=== PATIENT | female | born 1945 | race Two or more races ===

== ENCOUNTER 2020-02-08 23:13 | Inpatient (IN) | payer MEDICARE, OTHER ==
[~2020-02-08] VITALS: Ht 162.6 cm; Wt 90.7 kg
[2020-02-09 01:50] VITALS: BP 161/85
[2020-02-09] MEDS ORDERED: BLOOD SUGAR DIAGNOSTIC 1 EACH STRIP IN ONE (02:30)
[2020-02-09] MEDS ORDERED: TEMAZEPAM 7.5 MG CAPSULE PO PRN (02:30)
[2020-02-09] MEDS ORDERED: MAG HYDROX/AL HYDROX/SIMETH 30 ML UDC PO PRN (02:30)
[2020-02-09] MEDS ORDERED: MAGNESIUM HYDROXIDE 30 ML UDC PO PRN (02:30)
[2020-02-09] MEDS ORDERED: LORAZEPAM 0.5 MG TABLET PO PRN (02:30)
--- NOTE | 2020-02-09 02:30 | NUR ---
GPS RN-NOTE: ADMISSION ADMITTED A 74-YR OLD FEMALE, FROM [facility] VOLUNTARY ADMISSION DUE TO PARANOID DELUSIONS & AUDITORY HALLUCINATIONS. PER PATIENT," MY DAUGHTER TOOK ME TO THE HOSPITAL BECAUSE I WAS HEARING VOICES TELLING ME THAT MY EX WANTS TO KILL ME, IT IS A LONG STORY & PATIENT DIDN'T WANT TO GIVE MUCH INFORMATION AT THIS TIME." PER [facility] RECORDS, PATIENT THINKS THAT PEOPLE ARE STALKING HER & TRYING TO KILL HER. PT HAS PARANOID DELUSIONS & WAS SEEN IN ED FEW DAYS BACK ON 02/04/20 FOR SAME SYMPTOMS. PT CALLED POLICE X 3 IN THE PAST WEEK FOR THIS & REPORTEDLY HAS BEEN HAVING AUDITORY HALLUCINATIONS. NO HALLUCINATIONS AT THIS TIME. UPON ADMISSION TO [facility], PT. IS A & O X3, DENIES HALLUCINATIONS & DELUSIONS, DENIES SI/HI AT THIS TIME. AMBULATORY WITH WALKER ON SLOW PACE. CONTINENT. HAS BILATERAL LOWER EXTREMITIES LYMPH EDEMA. PT IS GRAVELY DISABLED. COOPERATIVE, FLAT AFFECT, PRESSURED SPEECH, ANXIOUS AT TIMES BUT CALM & RELAXED AT THIS TIME, NO BEHAVIOR EPISODE NOTED UPON ADMISSION. PT WAS ADVISED OF HER VOLUNTARY ADMISSION & PT. VERBALIZED UNDERSTANDING. PT'S RIGHTS HANDBOOK AND A GUIDE TO PRESCRIPTION MEDICATIONS GIVEN. IN NO APPARENT DISTRESS. BELONGINGS WERE INVENTORIED AND CHECKED FOR CONTRABAND. PT. IS UNDER CARE OF PSYCHIATRIC DR. MILLER AND THE MEDICAL CARE OF DR. DIAZ. SKIN BODY ASSESSMENT DONE. BED LOCKED AND PLACED IN LOWEST POSITION TO MAINTAIN SAFETY. FALL PRECAUTIONS IMPLEMENTED. WILL CONTINUE TO MONITOR Q15 MINS. FOR SAFETY AND BEHAVIOR. WILL ENDORSE TO THE DAY SHIFT NURSE FOR CONTINUITY OF CARE.
--- NOTE | 2020-02-09 03:00 | NUR ---
GPS RN NOTE PATIENT'S DTR STEPHON CALLED GPS UNIT & MADE AWARE ABOUT PT'S VOLUNTARY ADMISSION AT [facility] BY CHARGE NURSE.
[2020-02-09] MEDS ORDERED: RIVA10TA PO (03:19)
[2020-02-09] MEDS ORDERED: DIVA500T2 PO (03:19)
[2020-02-09] MEDS ORDERED: CLON0.1T PO (03:19)
[2020-02-09] MEDS ORDERED: GABA-532 PO (03:19)
[2020-02-09] MEDS ORDERED: VIT D PO (03:19)
[2020-02-09] MEDS ORDERED: ARIP10TA9 PO (03:19)
[2020-02-09] MEDS ORDERED: METO25TA4 PO (03:19)
[2020-02-09] MEDS ORDERED: MVI PO (03:19)
[2020-02-09 03:30] VITALS: BP 150/76
--- NOTE | 2020-02-09 05:00 | NUR ---
GPS RN NOTE REQUESTED DR. DIAZ TO RECONCILE THE MEDS & MD ASSURED THAT MED RECON WILL BE DONE.
[2020-02-09] MEDS ORDERED: CLONIDINE HCL 0.1 MG TABLET PO PRN (05:30)
[2020-02-09 05:45] VITALS: BP 141/73
--- NOTE | 2020-02-09 06:15 | NUR ---
GPS RN NOTE RECONCILED THE HOME MEDICATIONS OF NEW ADMITTED PATIENT.
--- NOTE | 2020-02-09 06:31 | NUR ---
GPS RN NOTE: DR. MILLER NOTIFIED DR. MILLER WAS CALLED BY CHARGE NURSE & MADE AWARE ABOUT NEW ADMISSION. INFORMED MD THAT STANDING ORDERS WERE ENTERED & NO NEW ORDER FROM DR. MILLER AT THIS TIME. WILL ENDORSE TO AM RN FOR CONTINUITY OF CARE.
[2020-02-09] MEDS: ACETAMINOPHEN 325 MG TABLET PO PRN (06:39)
--- NOTE | 2020-02-09 06:41 | NUR ---
GPS RN NOTE: LOWER BACK PAIN PATIENT C/O LOWER BACK PAIN 07/06 & WANTED TO TAKE PAIN MEDICINE. PRN TYLENOL 650 MG PO GIVEN. WILL CONTINUE TO MONITOR FOR ANY CHANGES.
[2020-02-09 07:26] LABS: BASOPHILS % (AUTO) 0.6 % (0.0-2.0); EOSINOPHILS % (AUTO) 1.7 % (0.0-6.0); HEMATOCRIT 45 % (33-45); HEMOGLOBIN 14.6 g/dL (11.5-14.8); LYMPHOCYTES # (AUTO) 1.7 /CMM (0.8-4.8); LYMPHOCYTES % (AUTO) 39.1 % (20.0-44.0); MEAN CORPUSCULAR HGB CONC 33 g/dl (31.0-36.0); MEAN CORPUSCULAR VOLUME 96 fL (82-100); MONOCYTES # (AUTO) 0.6 /CMM (0.1-1.30); MONOCYTES % (AUTO) 12.8 % (2.0-12.0); NEUTROPHILS % (AUTO) 45.8 % (43.0-81.0); PLATELET COUNT (AUTO) 157 /CMM (150-450); RED BLOOD CELL COUNT(AUTO) 4.61 MIL/uL (4.0-5.2); WHITE BLOOD COUNT (AUTO) 4.4 K/uL (4.3-11.0)
[2020-02-09 07:43] LABS: CALCIUM, SERUM 9.5 mg/dL (8.5-10.1); POTASSIUM 4.4 mmol/L (3.5-5.1)
[2020-02-09 08:00] VITALS: BP 130/74
[2020-02-09] MEDS: GABAPENTIN 100 MG CAPSULE PO SCH ×2 (09:15→17:11)
[2020-02-09] MEDS: METOPROLOL SUCCINATE 25 MG TAB.SR.24H PO SCH ×2 (09:16→16:55)
[2020-02-09] MEDS: RIVAROXABAN 10 MG TABLET PO SCH (09:17)
--- NOTE | 2020-02-09 10:01 | NUR ---
Family Contact: SW called the pts daughter, Jesusita ([phone]), and was unable to make contact or leave a message.
--- NOTE | 2020-02-09 10:46 | NUR ---
WOUND CARE CONSULT: PT REFUSED SKIN ASSESSMENT. REVIEWED PHOTO DOCUMENTATION WHICH INDICATES RASHES TO SKIN FOLDS AND DISCOLORATION TO LOWER LEGS, PRESENT ON ADMISSION. RECOMMENDATIONS MADE FOR SKIN PROTECTION. DISCUSSED WITH NURSING STAFF. PT IS AMBULATORY. IN AGREEMENT WITH PLAN OF CARE. Addendum: 02/09/20 at 1105 by DAMON SMITH WNDNU ADDITIONAL: PER ADMISSION PHOTOS THERE IS REDNESS WITH SOME CRUSTING TO LOWER LEGS, PRESENT ON ADMISSION. RECOMMEND DPM CONSULT. DR DAVIS NOTIFIED OF CONSULT REQUEST.
[2020-02-09] MEDS: Z GUARD REMEDY 4 OZ OINT TP SCH (11:53)
--- NOTE | 2020-02-09 12:27 | NUR ---
Initial Discharge Plan: Pt currently resides in her apartment located at [address] [place] [address] [address], [address], [place] [address]; ([phone]). Per pt, she would like to return to her apartment. Per daughter, Jesusita ([phone]), she will stay with the pt to ensure safety. SW will work with the pt and the MD regarding appropriate discharge planning. SW will form a safe and proper discharge plan.
--- NOTE | 2020-02-09 12:28 | NUR ---
Family Contact: SW called the pts daughter, Jesusita ([phone]), and discussed the pts treatment and discharge plan. She stated that the pt has been increasingly paranoid regarding her ex . Pt wants to go back to her apartment so the daughter stated that she will stay with her when she is discharged. ABBIE explained voluntary discharge protocols and explained the possibility of the pt being placed on a hold if she meets criteria. ABBIE also provided additional information on alternative placement options.
--- NOTE | 2020-02-09 12:57 | NUR ---
RELOCATED TO RM.217.
--- NOTE | 2020-02-09 14:00 | NUR ---
quieter after extra meds given.
[2020-02-09 16:00] VITALS: BP 104/65
--- NOTE | 2020-02-09 17:00 | NUR ---
SEVERAL TIMES TODAY REQUESTED TO BE D'CD.SO CRISIS PERSON IN AND EVALUATED PT. AND PT. PUT ON HOLD.DTR. MADE AWARE OF HOLD STATUS.
[2020-02-09] MEDS: CLOTRIMAZOLE 1% 15 GM TUBE TP SCH (17:11)
[2020-02-09 20:12] VITALS: BP 133/64
[2020-02-09] MEDS: DIVALPROEX SODIUM 500 MG TABLET.DR PO SCH (21:28)
[2020-02-09] MEDS: ARIPIPRAZOLE 5 MG TABLET PO SCH (21:28)
[2020-02-10 08:00] VITALS: BP 138/72
[2020-02-10] MEDS: GABAPENTIN 100 MG CAPSULE PO SCH ×2 (08:47→17:15)
[2020-02-10] MEDS: METOPROLOL SUCCINATE 25 MG TAB.SR.24H PO SCH ×2 (08:47→17:15)
[2020-02-10] MEDS: RIVAROXABAN 10 MG TABLET PO SCH (08:48)
[2020-02-10] MEDS: CLOTRIMAZOLE 1% 15 GM TUBE TP SCH ×2 (08:53→17:22)
[2020-02-10] MEDS: Z GUARD REMEDY 4 OZ OINT TP SCH (08:53)
[2020-02-10] MEDS: VITAMINS A AND D 56.7 GM TUBE TP SCH (08:54)
[2020-02-10] MEDS: ACETAMINOPHEN 325 MG TABLET PO PRN (14:17)
--- NOTE | 2020-02-10 14:18 | NUR ---
GROUP THERAPY: SW encouraged pt to attend group on this day, pt refused stating she wanted to leave instead of joining a group. Pt appears anxious and focused on being discharged.
--- NOTE | 2020-02-10 14:20 | NUR ---
GPS/RN-NOTES PATIENT C/O HEADACHE AND REQUESTING TYLENOL,TYLENOL 650MG P.O GIVEN PRN ORDER. WILL CONT. MONITORING.
[2020-02-10 16:00] VITALS: BP 135/69
[2020-02-10 20:11] VITALS: BP 136/75
[2020-02-10] MEDS: DIVALPROEX SODIUM 500 MG TABLET.DR PO SCH (21:25)
[2020-02-10] MEDS: ARIPIPRAZOLE 5 MG TABLET PO SCH (21:37)
--- NOTE | 2020-02-10 21:42 | NUR ---
GPS RN NOTE: PT ACCIDENTALLY DROPPED FIRST SET OF 2200 ABILIFY 5MG 4TABS/20MG WHILE TRYING TO PUT IT IN HER MOUTH SO IT WAS WASTED AND A SECOND SET PULLED FROM [employer] AND ADMINISTERED.
--- NOTE | 2020-02-11 06:56 | NUR ---
GPS RN CLOSING NOTES: PT AWAKE, A/O X3. NO BEHAVIORAL ISSUES THIS SHIFT. MED COMPLIANT. SLEPT 6HR. NO S/S OF DISTRESS. RESPIRATION EVEN AND UNLABORED WITH EQUAL RISE AND FALL OF THE CHEST ON ROOM AIR. ALL PT CARE NEEDS MET ANTICIPATED. CURRENTLY LAYING ON BED. WILL CONTINUE TO MONITOR AND ENDORSE TO AM SHIFT.
[2020-02-11 08:00] VITALS: BP 137/70
[2020-02-11] MEDS: METOPROLOL SUCCINATE 25 MG TAB.SR.24H PO SCH ×2 (09:12→16:16)
[2020-02-11] MEDS: GABAPENTIN 100 MG CAPSULE PO SCH ×2 (09:12→16:15)
[2020-02-11] MEDS: RIVAROXABAN 10 MG TABLET PO SCH (09:14)
[2020-02-11] MEDS: VITAMINS A AND D 56.7 GM TUBE TP SCH (09:18)
[2020-02-11] MEDS: CLOTRIMAZOLE 1% 15 GM TUBE TP SCH ×2 (09:18→16:16)
[2020-02-11] MEDS: Z GUARD REMEDY 4 OZ OINT TP SCH (09:18)
[2020-02-11 16:09] VITALS: BP 155/80
[2020-02-11 19:52] VITALS: BP 154/76
[2020-02-11] MEDS: ARIPIPRAZOLE 5 MG TABLET PO SCH (21:54)
[2020-02-11] MEDS: DIVALPROEX SODIUM 500 MG TABLET.DR PO SCH (21:54)
[2020-02-12 08:00] VITALS: BP 135/81
[2020-02-12] MEDS: METOPROLOL SUCCINATE 25 MG TAB.SR.24H PO SCH ×2 (08:30→16:27)
[2020-02-12] MEDS: GABAPENTIN 100 MG CAPSULE PO SCH ×2 (08:30→16:27)
[2020-02-12] MEDS: RIVAROXABAN 10 MG TABLET PO SCH (08:36)
[2020-02-12] MEDS: VITAMINS A AND D 56.7 GM TUBE TP SCH (08:52)
[2020-02-12] MEDS: CLOTRIMAZOLE 1% 15 GM TUBE TP SCH ×2 (08:53→16:56)
[2020-02-12] MEDS: Z GUARD REMEDY 4 OZ OINT TP SCH (08:53)
--- NOTE | 2020-02-12 11:53 | NUR ---
GROUP THERAPY: SW encouraged pt to attend group therapy on this present day. Pt refused stating that she was "busy." Pt appeared to be toileting on her diaper.
[2020-02-12 16:01] VITALS: BP 143/82
[2020-02-12 19:40] VITALS: BP 136/72
[2020-02-12 20:10] VITALS: BP 136/72
[2020-02-12] MEDS: DIVALPROEX SODIUM 500 MG TABLET.DR PO SCH (21:01)
[2020-02-12] MEDS: ARIPIPRAZOLE 5 MG TABLET PO SCH (21:01)
--- NOTE | 2020-02-13 03:28 | NUR ---
GPS RN NOTES ENDORSED PATIENT TO [facility] FOR CONTINUITY OF CARE.
--- NOTE | 2020-02-13 03:30 | NUR ---
GPS RN NOTES RECEIVED REPORT FROM HAYLEY MORALES FOR [facility].
[2020-02-13 08:00] VITALS: BP 138/70
[2020-02-13] MEDS: GABAPENTIN 100 MG CAPSULE PO SCH ×2 (08:28→16:38)
[2020-02-13] MEDS: METOPROLOL SUCCINATE 25 MG TAB.SR.24H PO SCH ×2 (08:28→16:39)
[2020-02-13] MEDS: RIVAROXABAN 10 MG TABLET PO SCH (08:29)
[2020-02-13] MEDS: Z GUARD REMEDY 4 OZ OINT TP SCH (08:35)
[2020-02-13] MEDS: VITAMINS A AND D 56.7 GM TUBE TP SCH (08:35)
[2020-02-13] MEDS: CLOTRIMAZOLE 1% 15 GM TUBE TP SCH ×2 (08:35→17:17)
[2020-02-13 16:00] VITALS: BP 137/72
[2020-02-13 19:57] VITALS: BP 122/75
[2020-02-13 20:15] VITALS: BP 122/75
[2020-02-13] MEDS: DIVALPROEX SODIUM 500 MG TABLET.DR PO SCH (21:04)
[2020-02-13] MEDS: ARIPIPRAZOLE 5 MG TABLET PO SCH (21:04)
[2020-02-14 08:00] VITALS: BP 140/91
[2020-02-14] MEDS: GABAPENTIN 100 MG CAPSULE PO SCH ×2 (08:12→16:49)
[2020-02-14] MEDS: METOPROLOL SUCCINATE 25 MG TAB.SR.24H PO SCH ×2 (08:13→16:49)
[2020-02-14] MEDS: RIVAROXABAN 10 MG TABLET PO SCH (08:18)
[2020-02-14] MEDS: Z GUARD REMEDY 4 OZ OINT TP SCH (08:19)
[2020-02-14] MEDS: VITAMINS A AND D 56.7 GM TUBE TP SCH (08:19)
[2020-02-14] MEDS: CLOTRIMAZOLE 1% 15 GM TUBE TP SCH ×2 (08:20→17:28)
[2020-02-14 16:00] VITALS: BP 147/83
[2020-02-14 20:00] VITALS: BP 134/78
[2020-02-14] MEDS: ARIPIPRAZOLE 5 MG TABLET PO SCH (21:13)
[2020-02-14] MEDS: DIVALPROEX SODIUM 500 MG TABLET.DR PO SCH (21:13)
--- NOTE | 2020-02-15 07:10 | NUR ---
GPS RN NOTES: PT. RESTING IN HER ROOM, CALM NOTED AT THIS TIME . NO S/S OF DISTRESS NOTED ,NO CHANGE OF CONDITION NOTED , ALL CARE NEEDS MET ANTICIPATED. MED COMPLIANT ,NO BEHAVIOR PROBLEMS NOTED ,WILL CONTINUE TO MONITOR FOR SAFETY BEHAVIOR, AND ENDORSE TO AM SHIFT FOR CONTINUITY OF CARE.
[2020-02-15 08:00] VITALS: BP 156/89
[2020-02-15] MEDS: GABAPENTIN 100 MG CAPSULE PO SCH ×2 (08:36→17:02)
[2020-02-15] MEDS: METOPROLOL SUCCINATE 25 MG TAB.SR.24H PO SCH ×2 (08:37→17:03)
[2020-02-15] MEDS: RIVAROXABAN 10 MG TABLET PO SCH (08:47)
[2020-02-15] MEDS: CLOTRIMAZOLE 1% 15 GM TUBE TP SCH ×2 (09:27→17:04)
[2020-02-15] MEDS: VITAMINS A AND D 56.7 GM TUBE TP SCH (09:34)
[2020-02-15] MEDS: Z GUARD REMEDY 4 OZ OINT TP SCH (09:34)
--- NOTE | 2020-02-15 10:34 | NUR ---
Family Contact: SW called the pts daughter, Jesusita ([phone]), and informed her that the pt will be discharged on either Saturday or . SW explained the pts current hold status and then informed her that the SW will inform her when the pt has her probable cause hearing. Pts daughter stated that the pt may need to be placed in a SNF and so the SW stated that she will speak to the pt and then refer to an appropriate SNF. SW stated that she will keep her involved.
--- NOTE | 2020-02-15 14:47 | NUR ---
Individual Intervention with the pt: SW met with the pt at bedside and informed her that the MD would like to discharge her on Saturday. Pt stated that she wanted to be discharged to a SNF and the SW stated that she will refer her to one and try to get an accepting facility. SW stated that she will keep her updated.
--- NOTE | 2020-02-15 14:48 | NUR ---
SNF Referral: ABBIE faxed a referral to [facility] with attn to Corey to the fax number: [phone].
[2020-02-15 16:00] VITALS: BP 136/62
--- NOTE | 2020-02-15 16:02 | NUR ---
Family Contact: Pts daughter, Jesusita ([phone]), called the SW and the SW stated that the pt was referred to a retirement facility called [facility] and provided her with the information regarding the facility and the payment. SW provided her with alternate facility names that are also recommended for this pt. SW stated that once she hears back from the facility she will call the pts daughter and inform her about the placement.
--- NOTE | 2020-02-15 16:25 | NUR ---
SNF Contact: Sailaja ([phone]), medical records coordinator from [facility], contacted the SW and stated that the pt was accepted to their facility. SW stated that the pt will be discharged on Saturday.
[2020-02-15 19:57] VITALS: BP 118/65
[2020-02-15] MEDS: DIVALPROEX SODIUM 500 MG TABLET.DR PO SCH (21:51)
[2020-02-15] MEDS: ARIPIPRAZOLE 5 MG TABLET PO SCH (21:52)
[2020-02-16 08:00] VITALS: BP 160/70
[2020-02-16] MEDS: GABAPENTIN 100 MG CAPSULE PO SCH ×2 (09:09→17:12)
[2020-02-16] MEDS: METOPROLOL SUCCINATE 25 MG TAB.SR.24H PO SCH ×2 (09:10→17:14)
[2020-02-16] MEDS: RIVAROXABAN 10 MG TABLET PO SCH (09:11)
[2020-02-16] MEDS: Z GUARD REMEDY 4 OZ OINT TP SCH (09:14)
[2020-02-16] MEDS: CLOTRIMAZOLE 1% 15 GM TUBE TP SCH ×2 (09:14→17:14)
[2020-02-16] MEDS: VITAMINS A AND D 56.7 GM TUBE TP SCH (09:15)
--- NOTE | 2020-02-16 11:38 | NUR ---
Family Contact: ABBIE called the pts daughter, Jesusita ([phone]), and informed her that the pt is going to be discharged to the facility the following day. SW stated that the pt will be placed in Rm 43A. Pts daughter stated that she approves this placement.
--- NOTE | 2020-02-16 13:30 | NUR ---
Individual Intervention with the pt: SW met with the pt in her room and expressed to her that the SNF placement is temporary and then she can go back to her apartment. Pt appeared to be ecstatic about that and thanked the SW.
--- NOTE | 2020-02-16 13:43 | NUR ---
Family Contact: SW called the pts daughter, Jesusita ([phone]), and informed her that the SNF placement is not permanent and wanted to make sure that she understood that. She stated that she does understand that.
[2020-02-16 16:00] VITALS: BP 120/66
[2020-02-16 19:50] VITALS: BP 136/74
[2020-02-16] MEDS: DIVALPROEX SODIUM 500 MG TABLET.DR PO SCH (21:08)
[2020-02-16] MEDS: ARIPIPRAZOLE 5 MG TABLET PO SCH (21:08)
[2020-02-17 08:00] VITALS: BP 146/83
[2020-02-17 08:13] VITALS: BP 146/83
[2020-02-17] MEDS: METOPROLOL SUCCINATE 25 MG TAB.SR.24H PO SCH (08:13)
[2020-02-17] MEDS: GABAPENTIN 100 MG CAPSULE PO SCH (08:13)
[2020-02-17] MEDS: Z GUARD REMEDY 4 OZ OINT TP SCH (08:15)
[2020-02-17] MEDS: VITAMINS A AND D 56.7 GM TUBE TP SCH (08:15)
[2020-02-17] MEDS: CLOTRIMAZOLE 1% 15 GM TUBE TP SCH (08:15)
[2020-02-17] MEDS: RIVAROXABAN 10 MG TABLET PO SCH (08:38)
--- NOTE | 2020-02-17 11:21 | NUR ---
Discharge Note: Pt was discharged to [facility] (SNF) located at [address] [place] [address]; . Pt was transported via [facility] (Trip #[id number]) at 1pm. Pt will be placed in Rm 43A. Pts daughter, Jesusita ([phone]), accepted the placement. Upon discharge, the pt appeared to be in a euthymic mood and presented with a calm affect. Pt denied having any suicidal or homicidal ideation and stated that she does not have any auditory or visual hallucinations. Pt appeared to be alert and oriented x4 (time, place, self and situation). Pt appeared to be well groomed and appropriately dressed. Pt will be under the care of her psychiatrist, Dr. Noel, [place] at [address] [place] [address]; and her industrial conveyor belt repairer, Dr. Lew Savage, located at [address], [place] [address]; . Pt signed the Choice of Vendor form and the multidisciplinary exit care form was done, printed, signed, and given to the patient.
--- NOTE | 2020-02-17 12:43 | NUR ---
GPS TONG HOOKER NOTE: PATIENT DISCHARGED TODAY AT 1300 TO [facility] LOCATED AT [address] [place] [id number]. PATIENT LEFT THE UNIT VIA AMBULANCE TRIP # [id number]. PATIENT IS IN STABLE CONDITION. VSS. NO ACUTE DISTRESS NOTED. NO COMPLAINTS. COMPLIANT WITH MEDICATION MANAGEMENT. COOPERATIVE WITH PLAN OF CARE. PSYCHIATRIC TREATMENT PLANS MET. MEDICAL TREATMENT PLANS DEFERRED FOR CONTINUAL MONITORING. DENIES SI/HI/VAH AT THE TIME OF DISCHARGE. SKIN CHECK DONE PICTURES TAKEN PLACED IN THE CHART. PT UNDER BREAST FOLD AND GROIN AREA HEALED. EDUCATED PATIENT ABOUT AFTERCARE WITH COPY PROVIDED. RETURNED PERSONAL BELONGINGS AND VALUABLES TO PATIENT. MEDICATIONS RECONCILED WITH ALONG WITH PSYCHIATRIC DISCHARGE ORDERS. DISCHARGE PAPERWORK SIGNED. FOR FOLLOW UP WITH PSYCHIATRIST AND DISTRICT ADMINISTRATIVE ASSISTANT WITHIN 1 WEEK. Addendum: 02/17/20 at 1253 by JAKE AGUILERA RN REPORT GIVEN TO LEIF HARDY IN SNF. PATIENT REFUSED FLU VACCINE, PNEUMONIA VACCINE.
== END 2020-02-17 13:41 | DRG 885 ==
LOC: GPS 02-09 01:31
PROVIDERS: ADMIT Psychiatry & Neurology Psychiatry; ATTEND Internal Medicine
DX: F25.9 Schizoaffective disorder, unspecified (principal); E44.1 Mild protein-calorie malnutrition; F29 Unspecified psychosis not due to a substance or known physiological condition; F41.9 Anxiety disorder, unspecified; E66.01 Morbid (severe) obesity due to excess calories; I10 Essential (primary) hypertension; I73.9 Peripheral vascular disease, unspecified; I87.2 Venous insufficiency (chronic) (peripheral); G62.9 Polyneuropathy, unspecified; Z79.01 Long term (current) use of anticoagulants; Z86.718 Personal history of other venous thrombosis and embolism; Z73.6 Limitation of activities due to disability; M62.81 Muscle weakness (generalized); F32.9 Major depressive disorder, single episode, unspecified; Z68.34 Body mass index [BMI] 34.0-34.9, adult
CPT/HCPCS: 36415; 80048-TC; 80061-TC; 80164-TC; 82962-TC; 85025-TC; 87081-TC; 97112-TC; 97116-TC; 97530-TC